=== PATIENT | male | born 2000 | race Asian ===

== ENCOUNTER 2024-01-06 20:35 | Emergency (ER) | payer SELFPAY ==
[2024-01-06 20:59] VITALS: BP 125/80; PULSE 81; RESP 16; TEMP 37.7; O2SAT 98; BMI 20.6
--- NOTE | 2024-01-06 22:02 | ED.WOUNDLAC ---
HPI - Wound/Laceration General Chief Complaint: Wound/Laceration Stated Complaint: cut finger with glass Time Seen by Provider: 01/06/24 21:57 Source: patient Mode of arrival: ambulatory Limitations: no limitations History of Present Illness HPI narrative: 23-year-old male with no significant past medical history presents emergency department, with friends, with concerns for a laceration on his right ring finger. He reports he was attempting to open a glass bottle when he sustained a laceration. He denies any paresthesias, weakness, or change in range of motion of the finger. He is unsure when his last tetanus shot was. Related Data Allergies Allergy/AdvReac Type Severity Reaction Status Date / Time No Known Allergies Allergy Verified 01/06/24 20:58 Review of Systems Review of Systems: Yes all other systems are reviewed and are negative Physical Exam Vital Signs: Vital Signs: Last Vital Signs Temp 97.7 F 01/06/24 22:22 Pulse 106 H 01/06/24 22:22 Resp 20 01/06/24 22:22 BP 137/85 01/06/24 22:22 Pulse Ox 100 01/06/24 22:22 O2 Del Method Room Air 01/06/24 22:22 BMI result Body Mass Index 20.6 Nursing notes and vital signs reviewed. GENERAL APPEARANCE: A&0 x 4, generally well appearing, no acute distress HENMT: Normal to inspection, atraumatic, face symmetrical. Normal external ears, nose, and oropharynx clear. EYE: PERRLA, EOM intact, structures appear normal NECK: Supple without stiffness or restricted ROM. HEART: Normal rate and regular rhythm, normal S1/S2, no M/R/G LUNGS: LS CTA, moving air well. Able to speak in complete sentences. No crackles, wheezes, or rhonchi auscultated BACK: No CVAT, no obvious deformity EXTREMITIES: Moving all extremities without difficulty. Normal capillary refill. NEUROLOGICAL: Alert and oriented, moving all 4 extremities with equal strength. CN not formally tested but appearing grossly intact. Observed to ambulate with normal gait. Cognition normal SKIN: Warm and dry without any lesions, rash, or visible sores Medical Decision Making Medical Decision Making MDM Narrative: Old records reviewed for previous imaging, lab studies, ECGs, and notes. Patient was assessed the emergency department with no acute distress or toxicity noted. Laceration cleansed and closed. See procedure note for further details. Patient educated to return in 7-10 days for suture removal and to keep wound clean and dry to prevent infection. Patient is safe for discharge at this time with plan for [id number] Tylenol and/or NSAID such as ibuprofen or naproxen for fever/discomfort with dosing as per packaging. HPI, PE, diagnostics, and plan discussed with patient and family with no unanswered questions at this time. Strict return precautions given to return to the emergency department with new, worsening, or concerning emergent symptoms. Recommended to follow-up with there primary care provider in 24-48 hours for further treatment and management. Procedures Laceration Laceration 1: Site: hand Side (If applicable): right Size (cm): 1 Description: flap Depth: simple, single layer Local Anesthetic: lidocaine 1% Amount of anesthesia used (mL): 5 Skin layer closed with: nylon Size (cm): 4-0 Number of sutures: 3 Technique: simple, interrupted Discharge Plan Discharge Clinical Impression: Laceration Patient Disposition: Home, Self-Care Instructions: Care For Your Stitches (ED), Laceration (ED) Referrals: [facility] [place] Family Medicine [Provider Group] [facility] [place] [facility] [Provider Group] [facility] [place] [facility] [Provider Group] Stand Alone Forms: Work/School Release Print Language: Spanish
[2024-01-06 22:22] VITALS: BP 137/85; PULSE 106; RESP 20; TEMP 36.5; O2SAT 100
[2024-01-06] MEDS: Diphth,Pertus(ACell),Tet Adult 0.5 ML SYRINGE IM (22:51)
[2024-01-06] MEDS: Lidocaine HCl 1 % 20 ML VIAL 30 ML INFILTRATI (22:53)
[2024-01-07 00:32] VITALS: BP 114/67; PULSE 72; RESP 16; TEMP 36.8; O2SAT 97
== END 2024-01-07 | disposition home or self-care (01) ==
PROVIDERS: Emergency Provider Internal Medicine
DX: S61.214A Laceration without foreign body of right ring finger without damage to nail, initial encounter (principal); W25.XXXA Contact with sharp glass, initial encounter; Y93.9 Activity, unspecified; Y92.9 Unspecified place or not applicable; Y99.9 Unspecified external cause status
CPT/HCPCS: 12001; 90471; 90715; 99284

== ENCOUNTER 2024-01-11 12:20 | Emergency (ER) | payer OTHER, SELFPAY ==
[2024-01-11 13:08] VITALS: BP 115/68; PULSE 96; RESP 14; TEMP 37.2; O2SAT 98; BMI 17.2
--- NOTE | 2024-01-11 13:08 | ED_ITS ---
HPI - Skin/Abscess/Foreign Bdy General Chief complaint: Wound/Laceration Stated complaint: Suture Removal Time Seen by Provider: 01/11/24 13:12 Source: patient and RN notes reviewed Mode of arrival: ambulatory Limitations: no limitations History of Present Illness HPI narrative: 23 y/o M presenting to the ER for suture removal. He was seen here 5 days ago after accidentally lacerating his right fourth digit. He had 3 sutures placed and believed that he was told to come back in 5 days to have sutures removed. No fevers, chills, increased redness, swelling, or drainage. No other complaints or concerns. MD complaint: laceration Onset (ago): day(s) Relieving factors: none Exacerbating factors: none Context: none Associated symptoms: denies other symptoms Treatments prior to arrival: none Related Data Allergies Allergy/AdvReac Type Severity Reaction Status Date / Time No Known Allergies Allergy Verified 01/06/24 20:58 Review of Systems Review of Systems: Yes all other systems are reviewed and are negative PMFSH Social History Social History Alcohol intake: never Advance Directives: No Advance Directives Information Provided: No Physical Exam Vital Signs: Vital Signs: Last Vital Signs Temp 98.9 F 01/11/24 13:08 Pulse 96 01/11/24 13:08 Resp 14 01/11/24 13:08 BP 115/68 01/11/24 13:08 Pulse Ox 98 01/11/24 13:08 O2 Del Method Room Air 01/11/24 13:08 BMI result Body Mass Index 17.2 Const: Other: General: Awake, alert, and oriented X3. No acute distress. HEENT: Normal inspection CVS: Normal heart rate and rhythm. Pulses normal. Respiratory: No respiratory distress Skin: Right fourth digit palmar aspect there is a 1cm healing laceration with [address], No surrounding erythema or warmth. No drainage. Extremities: Neuro: Oriented X 3. No motor deficit. No sensory deficit. Medical Decision Making Medical Decision Making [facility] Narrative: This is a [id number] presenting to the ER for suture removal. On arrival, VSS, wound appears to be well healing however does not appear to be ready for sutures to be removed. Given that it has only been 5 days and wound appears to still be healng, I advised patient to return in a few days to have sutures removed. He understands and agrees with plan. Differential Diagnosis Differential Diagnoses: The differential diagnosis associated with the presentation includes wound dehiscence, cellulitis, wound check, suture removal. Discharge Plan Discharge Clinical Impression: Visit for suture removal Patient Disposition: Home, Self-Care Instructions: Care For Your Stitches (ED), Acute Wounds (ED), Stitches Removal (ED) Additional Instructions: Please keep wound clean and dry. Please return in 2-5 days to have sutures removed. If any new or worsening symptoms occur including but not limited to drainage from the area, increased redness, swelling, please return for re-evaluation. Discharge Date/Time: 01/11/24 13:32
== END 2024-01-11 13:32 | disposition home or self-care (01) ==
PROVIDERS: Emergency Provider Emergency Medicine Emergency Medical Services
DX: Z48.02 Encounter for removal of sutures (principal)
CPT/HCPCS: 99281

== ENCOUNTER 2024-01-15 13:07 | Emergency (ER) | payer OTHER, SELFPAY ==
--- NOTE | 2024-01-15 13:31 | ED.SKABFB ---
HPI - Skin/Abscess/Foreign Bdy General Stated complaint: Suture Removal Source: patient Mode of arrival: ambulatory Limitations: no limitations History of Present Illness HPI narrative: Patient is a 23-year-old male presenting to the ER for suture removal. He was seen here 9 days ago after accidentally lacerating his right fourth digit. He had 3 sutures placed and presents today to have sutures removed. No fevers, chills, increased redness, swelling, or drainage. No other complaints or concerns. Related Data Allergies Allergy/AdvReac Type Severity Reaction Status Date / Time No Known Allergies Allergy Verified 01/15/24 13:34 Review of Systems Review of Systems: Yes all other systems are reviewed and are negative PMFSH Past Medical History Attestation statement: The following information was validated with the patient. Source: old records reviewed Social History Social History Alcohol intake: never Physical Exam Vital Signs: Appearance: Alert.?Oriented to person, place and time. No acute distress.?Normal affect. CVS: Heart sounds normal. Normal heart rate and rhythm.? Pulses normal.?? Respiratory: No respiratory distress.? Lung sounds clear to auscultation bilaterally?? Skin: Skin warm and dry.? Normal skin color.? right 4th digit laceration, 3 stitches intact Extremities: No extremity edema.? Neuro: Moves all extremities spontaneously. Sensation intact bilaterally. Ambulates with normal steady gait. Medical Decision Making Medical Decision Making MDM Narrative: Patient is a 23-year-old male who presents emergency department for suture removal right 4th digit as per HPI, laceration is well-appearing, no signs of infection. Sutures were removed without. Differential Diagnosis Differential Diagnoses: The differential diagnosis associated with the presentation includes (Expected wound heal evidence of delayed wound healing, no evidence of cellulitis or infection.) Discharge Plan Discharge Clinical Impression: Visit for suture removal Patient Disposition: Home, Self-Care Instructions: Stitches Removal (ED) Referrals: Physician,None [Primary Care Provider] -
[2024-01-15 13:34] VITALS: BP 107/63; PULSE 76; RESP 16; TEMP 36.9; O2SAT 99; BMI 19.2
[2024-01-15 13:41] VITALS: BP 107/63; PULSE 76; RESP 16; TEMP 36.9; O2SAT 99
== END 2024-01-15 13:46 | disposition home or self-care (01) ==
LOC: HO.ED 13:43
PROVIDERS: Emergency Provider Student in an Organized Health Care Education/Training Program
DX: S61.214D Laceration without foreign body of right ring finger without damage to nail, subsequent encounter (principal); X58.XXXD Exposure to other specified factors, subsequent encounter
CPT/HCPCS: 99282